=== PATIENT | female | born 1955 ===

== ENCOUNTER 2021-06-22 07:45 | Inpatient (IN) | payer OTHER ==
[~2021-06-22] VITALS: Ht 162.6 cm; Wt 65.3 kg
[2021-06-22] MEDS ORDERED: SIMVAST (10:28)
[2021-06-22] MEDS ORDERED: GLUMETZA1000 MG PO (10:28)
[2021-06-22] MEDS ORDERED: GLIMEPIRIDE4 M1 PO (10:29)
[2021-06-22] MEDS ORDERED: COZAAR50 MG PO (10:29)
[2021-06-24] MEDS ORDERED: TIMOLOL MALEATE5 M4 (07:54)
[2021-06-24] MEDS ORDERED: SIMVASTATIN20 MG (07:54)
[2021-06-24] MEDS ORDERED: LATANOPROST2.5 ML (07:54)
== END 2021-06-26 11:54 | disposition home or self-care (01) | DRG 735 ==
LOC: OB/GYN 06-24 05:40 → O/R 06-24 05:40 → SURH 06-24 07:00 → OB/GYN 06-24 14:33
PROVIDERS: ADMIT Obstetrics & Gynecology Gynecologic Oncology; ATTEND Obstetrics & Gynecology Gynecologic Oncology
PROC: 0UT90ZZ Resection of Uterus, Open Approach (ICD-10-PCS; 2021-06-24)
PROC: 0UT70ZZ Resection of Bilateral Fallopian Tubes, Open Approach (ICD-10-PCS; 2021-06-24)
PROC: 0UT20ZZ Resection of Bilateral Ovaries, Open Approach (ICD-10-PCS; 2021-06-24)
PROC: 07TC0ZZ Resection of Pelvis Lymphatic, Open Approach (ICD-10-PCS; principal; 2021-06-24 07:00)
DX: C54.1 Malignant neoplasm of endometrium (principal); Z20.822 Contact with and (suspected) exposure to COVID-19

== ENCOUNTER 2021-07-04 23:15 | Emergency (ER) | payer OTHER ==
[~2021-07-04] VITALS: Ht 162.6 cm; Wt 65.3 kg
[~2021-07-04 23:15] MED LIST: COZAAR50 MG PO; GLIMEPIRIDE4 M1 PO; GLUMETZA1000 MG PO; LATANOPROST2.5 ML; SIMVAST; SIMVASTATIN20 MG; TIMOLOL MALEATE5 M4
[2021-07-05] MEDS ORDERED: SANTYL OINT.30 GM TOP (05:12)
[2021-07-05] MEDS ORDERED: ONDANSETRON ODT4 MG PO (05:12)
[2021-07-05] MEDS ORDERED: PEPCID40 MG PO (05:12)
== END 2021-07-05 05:21 ==
LOC: ER 23:15
DX: R10.13 Epigastric pain (principal); L98.499 Non-pressure chronic ulcer of skin of other sites with unspecified severity; E11.9 Type 2 diabetes mellitus without complications; Z79.84 Long term (current) use of oral hypoglycemic drugs; I10 Essential (primary) hypertension; Z88.8 Allergy status to other drugs, medicaments and biological substances